=== PATIENT | male | born 1955 ===

== ENCOUNTER 2018-01-31 10:37 | Emergency (ER) | payer MEDICAID ==
--- NOTE | 2018-01-31 12:52 | C.PDOC ---
History Of Present Illness Patient with history of Stroke presents to ED brought by family for right facial swelling and pain for 2 days. As per family patient had similar episode 1 year ago and was admitted. As per family patient is unable to tolerate po intake secondary to pain and denies numbness, recent fall, fever or any other complaints at this time. Time Seen by Provider: 01/31/18 11:41 Chief Complaint (Nursing): Abnormal Skin Integrity History Per: Patient History/Exam Limitations: no limitations Onset/Duration Of Symptoms: Days Current Symptoms Are (Timing): Still Present Past Medical History Reviewed: Historical Data, Nursing Documentation, Vital Signs Vital Signs: Last Vital Signs Temp 98.1 F 01/31/18 16:06 Pulse 58 L 01/31/18 16:06 Resp 18 01/31/18 16:06 BP 135/71 01/31/18 16:06 Pulse Ox 97 01/31/18 16:06 - Medical History PMH: CVA, Diabetes, HTN, Seizures Surgical History: No Surg Hx - [facility] Procedures ENTERAL INFUSION OF CONCENTRATED NUT. SUBSTANCES (12/15/12) OTHER GASTROSTOMY (12/15/12) Family History: States: No Known Family Hx - Social History Hx Tobacco Use: No Hx Alcohol Use: No Hx Substance Use: No - Immunization History Hx Tetanus Toxoid Vaccination: No Hx Influenza Vaccination: No Hx Pneumococcal Vaccination: No Review Of Systems Constitutional: Positive for: Other (facial swelling). Negative for: Fever, Chills Cardiovascular: Negative for: Chest Pain Respiratory: Negative for: Shortness of Breath Gastrointestinal: Negative for: Nausea, Vomiting Skin: Negative for: Rash Neurological: Negative for: Weakness, Numbness Physical Exam - Physical Exam Appears: Non-toxic, No Acute Distress Skin: Warm, Dry, No Rash Head: Normacephalic, Swelling (mild to right side of face at the maxillary jaw) Eye(s): bilateral: PERRL, EOMI Ear(s): Bilateral: Normal Oral Mucosa: Moist Throat: No Erythema, No Exudate Neck: Normal ROM, Supple Lymphatic: No Adenopathy Chest: Symmetrical, No Tenderness Cardiovascular: Rhythm Regular, No Friction Rub, No Murmur Respiratory: Normal Breath Sounds, No Rales, No Rhonchi, No Wheezing Gastrointestinal/Abdominal: Bowel Sounds (active), Soft, No Tenderness Back: Normal Inspection Extremity: Normal ROM, No Tenderness, No Swelling Neurological/Psych: Oriented x3, Normal Speech, Normal Motor, Normal Sensation Gait: Steady ED Course And Treatment - Laboratory Results Result Diagrams: 01/31/18 13:01 01/31/18 13:01 O2 Sat by Pulse Oximetry: 98 (RA) Pulse Ox Interpretation: Normal Medical Decision Making Medical Decision Making: CT scan of the facial bones found no abscess or acute abnormalities. On re-exam, the patient reports improvement of symptoms. Patient was able to eat a full diet. Lungs are CTA, heart is RRR, Abdomen is soft, non-tender and the patient is tolerating PO well. Ambulatory in the ED with steady gait. Follow up with the medical doctor/clinic within 1-2 days without fail. Return if worsened. Disposition - Disposition Referrals: Marianne Deleon DMD [Staff Provider] - Tonny Sandhu MD [Staff Provider] - Disposition: HOME/ ROUTINE Disposition Time: 15:50 Condition: FAIR Additional Instructions: Follow up with the medical doctor/clinic within 1-2 days without fail. Return if worsened. 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 - Scribe Statement The provider has reviewed the documentation as recorded by the Joel Gilbert All medical record entries made by the Joel were at my direction and personally dictated by me. I have reviewed the chart and agree that the record accurately reflects my personal performance of the history, physical exam, medical decision making, and the department course for this patient. I have also personally directed, reviewed, and agree with the discharge instructions and disposition.
[2018-01-31 13:18] LABS: ALB/GLOB RATIO 1.4 (1.0-2.1); ALBUMIN 4.7 g/dL (3.5-5.0); ALT/SGPT 65 U/L (21-72); AST/SGOT 68 U/L (17-59); BLOOD UREA NITROGEN 17 mg/dL (9-20); GFR AFRICAN-AMERICAN > 60; GFR NON-AFRICAN AMERICAN > 60
[2018-01-31 13:21] LABS: BASO % 0.9 % (0.0-2.0); EOS # 0.2 K/uL (0.0-0.7); HEMOGLOBIN 11.2 g/dL (12.0-18.0); LYMPH # 1.5 K/uL (1.0-4.3); LYMPH % 27.8 % (20.0-40.0); MEAN CELL VOLUME 79.4 fL (80.0-94.0); MEAN CORPUSCULAR HEMOGLOBIN 25.4 pg (27.0-31.0); MEAN PLATELET VOLUME 9.5 fL (7.2-11.7); MONO # 0.5 K/uL (0.0-0.8); NEUT # 3.2 K/uL (1.8-7.0); NEUT % 59.3 % (50.0-75.0); RBC 4.4 Mil/uL (4.40-5.90); RED CELL DISTRIBUTION WIDTH 16.1 % (11.5-14.5); WHITE BLOOD COUNT 5.4 K/uL (4.8-10.8)
[2018-01-31] MEDS ORDERED: Iodixanol 320 MG/ML 100 ML BOTTLE IV ONE (13:49)
[2018-01-31 14:48] VITALS: RESP 18
--- NOTE | 2018-01-31 15:46 | CT ---
PROCEDURE: CT OF THE FACE WITH CONTRAST HISTORY: right sided facial swelling, possible abscess COMPARISON: Facial CT without contrast 01/18/2017. TECHNIQUE: Contiguous axial CT images of the facial bones and soft tissue were obtained following administration of IV contrast. Coronal and sagittal reformats were generated. Intravenous contrast Dose: Visipaque 320, 100 cc Radiation dose: Total exam DLP = 792.88 mGy-cm. This CT exam was performed using one or more of the following dose reduction techniques: Automated exposure control, adjustment of the mA and/or kV according to patient size, and/or use of iterative reconstruction technique. FINDINGS: Radiodense markers and placed at the site of the patient's symptoms and suppose it facial swelling and localizes to the level of the right mandibular soft tissues at the level of the junction of the horizontal right mandibular ramus with the right mandibular angle. The visualized superficial portion of the right parotid gland is unremarkable here is well as the masseter muscle superficial segment. No destructive bony lesion is encountered here or throughout the remainder of the facial bones shotty submental and submandibular triangle lymph nodes are identified as well as at the bilateral jugulodigastric distribution in the visualized supra and infrahyoid neck. No abscess appreciable throughout the examination. NASAL BONES: Unremarkable. ORBITS: Unremarkable. PARANASAL SINUSES/ MASTOIDS: Clear. MAXILLA: Unremarkable. MANDIBLE/ TEMPOROMANDIBULAR JOINTS: Unremarkable. SKULL BASE: Unremarkable. TEMPORAL BONES: Middle ears and mastoid grossly unremarkable. OTHER FINDINGS: None. IMPRESSION: Unremarkable contrast enhanced CT of the maxillofacial bones.
[2018-01-31 16:08] VITALS: BP 135/71; PULSE 58; TEMP 98.1
[2018-01-31 18:28] VITALS: O2SAT 98
== END 2018-01-31 16:06 | disposition home or self-care (01) ==
LOC: C.ER 10:37
DX: R68.84 Jaw pain (principal); E11.9 Type 2 diabetes mellitus without complications; I10 Essential (primary) hypertension
CPT/HCPCS: 70488; 80053; 85025; 96374; 99284; J1885; Q9967

== ENCOUNTER 2018-11-17 10:33 | Emergency (ER) | payer MEDICAID ==
[2018-11-17 10:54] VITALS: RESP 18; BMI 22.1
--- NOTE | 2018-11-17 11:29 | C.PDOC ---
History Of Present Illness 62-year-old male, whose PMHx includes trigeminal neuralgia, presents to the ED with daughter for evaluation of worsening right-sided facial pain. Patient has been compliant with his prescription of 600mg Gabapentin QID. He states that over the past week, his pain has worsened, particularly when he is eating or brushing his teeth. Patient denies fever, chills, or recent trauma/injuries. History obtained via daughter due to language barrier. Time Seen by Provider: 11/17/18 10:53 Chief Complaint (Nursing): Abnormal Skin Integrity History Per: Patient, Family History/Exam Limitations: language barrier Onset/Duration Of Symptoms: Other (one week ) Current Symptoms Are (Timing): Worse Location Of Injury: Right: Face Quality Of Symptoms: Painful Additional History Per: Family Past Medical History Reviewed: Historical Data, Nursing Documentation, Vital Signs Vital Signs: Last Vital Signs Temp 98.6 F 11/17/18 10:41 Pulse 78 11/17/18 10:41 Resp 18 11/17/18 10:41 BP 160/74 H 11/17/18 10:41 Pulse Ox 100 11/17/18 10:41 - Medical History PMH: CVA, Diabetes, HTN, Seizures Surgical History: No Surg Hx - [facility] Procedures ENTERAL INFUSION OF CONCENTRATED NUT. SUBSTANCES (12/15/12) OTHER GASTROSTOMY (12/15/12) Family History: States: No Known Family Hx - Social History Hx Tobacco Use: No Hx Alcohol Use: No Hx Substance Use: No - Immunization History Hx Tetanus Toxoid Vaccination: No Hx Influenza Vaccination: No Hx Pneumococcal Vaccination: No Review Of Systems Constitutional: Negative for: Fever, Chills ENT: Positive for: Other (right-sided facial pain ) Cardiovascular: Negative for: Chest Pain Respiratory: Negative for: Shortness of Breath Skin: Negative for: Rash Neurological: Negative for: Weakness, Numbness, Incoordination, Change in Speech, Confusion, Seizures, Altered Mental Status, Headache, Dizziness Physical Exam - Physical Exam Appears: Well, Non-toxic, Other (uncomfortable appearing ) Skin: Normal Color, Warm, Dry, No Rash Head: Atraumatic, Normacephalic, Tenderness ((+) TTP along the right zygomatic arch), No Swelling (facial ), No Other (facial erythema ) Eye(s): bilateral: Normal Inspection, PERRL, EOMI Ear(s): Bilateral: Normal Nose: Normal, No Discharge Oral Mucosa: Moist Teeth: No Normal Dentition (poor ), Caries Gingiva: Normal Appearing, No Erythema, No Swelling Neck: Normal ROM, No Midline Cervical Tenderness, No Paracervical Tenderness, No Step Off Deformity, Supple Cardiovascular: Rhythm Regular Respiratory: Normal Breath Sounds, No Rales, No Rhonchi, No Wheezing Extremity: Normal ROM Neurological/Psych: Oriented x3, Normal Speech, Normal Cognition, Normal Cranial Nerves, No Cerebellar Signs, Normal Motor, Normal Sensation ED Course And Treatment O2 Sat by Pulse Oximetry: 100 (on RA) Pulse Ox Interpretation: Normal Progress Note: Patient given IM toradol and PO Valium. Reevaluation Time: 11:50 Reassessment Condition: Improved (On reassessment, patient is resting comfortably and pain has improved. Rxs for Naprosyn and Valium given. Patient instructed to follow up with his neurologist Dr. Harper within 1 week. He understands he should return to ED if symptoms worsen.) Disposition Counseled Patient/Family Regarding: Diagnosis, Need For Followup, Rx Given - Disposition Referrals: Toney Harper MD [Staff Provider] - Wesly Bailey MD [Staff Provider] - Disposition: HOME/ ROUTINE Disposition Time: 11:50 Condition: STABLE Additional Instructions: FOLLOW UP WITH YOUR DOCTOR IN 1-2 DAYS, AND WITH YOUR NEUROLOGIST WITHIN 1 WEEK USE MEDICATIONS DIRECTED RETURN TO ER IF SYMPTOMS WORSEN Prescriptions: Diazepam [Valium] 2 mg PO BID PRN #14 tablet PRN Reason: musle spasm Naproxen 375 mg PO BID PRN #20 tablet PRN Reason: pain Instructions: Trigeminal Neuralgia Forms: [employer] (Indonesian) Print Language: SALVADOREAN - Clinical Impression Clinical Impression: Trigeminal neuralgia of right side of face - Scribe Statement The provider has reviewed the documentation as recorded by the Scribe (Carrie Finley) Provider Attestation: All medical record entries made by the Scribe were at my direction and personally dictated by me. I have reviewed the chart and agree that the record accurately reflects my personal performance of the history, physical exam, medical decision making, and the department course for this patient. I have also personally directed, reviewed, and agree with the discharge instructions and disposition.
[2018-11-17 11:44] VITALS: BP 152/77; PULSE 65; TEMP 97.4
[2018-11-17 14:49] VITALS: O2SAT 100
== END 2018-11-17 11:58 | disposition home or self-care (01) ==
LOC: C.ER 10:33
DX: G50.0 Trigeminal neuralgia (principal)
CPT/HCPCS: 82948; 96372; 99283; J1885

== ENCOUNTER 2018-12-28 12:00 | Emergency (ER) | payer MEDICAID ==
[2018-12-28 12:00] VITALS: BMI 22.1
[2018-12-28 12:29] VITALS: BP 180/83; PULSE 70; RESP 16; TEMP 97.3; O2SAT 98
--- NOTE | 2018-12-28 13:32 | C.PDOC ---
History Of Present Illness 62 y/o male presents to the ER complaining of recurrent bleeding hemorrhoids which occurred in the morning.Patient states that he had onset after having bm and he had some associated rectal pain. Patient reports that he has hemorrhoids which has been present for the past 1 month. He notes that he was evaluated by his PMD and he is pending colonoscopy. He states that he has not been evaluated by a surgeon as of now. He is currently on Plavix and Lactulose. Currently,patient denies having rectal pain, fever,chills, nausea, and vomiting. Time Seen by Provider: 12/28/18 13:16 Chief Complaint (Nursing): GI Problem History Per: Patient History/Exam Limitations: no limitations Onset/Duration Of Symptoms: Days Current Symptoms Are (Timing): Still Present Severity: Moderate Past Medical History Reviewed: Historical Data, Nursing Documentation, Vital Signs Vital Signs: Last Vital Signs Temp 97.3 F L 12/28/18 12:28 Pulse 70 12/28/18 12:28 Resp 16 12/28/18 12:28 BP 180/83 H 12/28/18 12:28 Pulse Ox 98 12/28/18 12:28 Primary Care Provider: Wesly Bailey - Medical History PMH: CVA, Diabetes, HTN, Seizures Other Surgeries: Hx of surgeries - [facility] Procedures ENTERAL INFUSION OF CONCENTRATED NUT. SUBSTANCES (12/15/12) OTHER GASTROSTOMY (12/15/12) Family History: States: No Known Family Hx, Unknown Family Hx - Social History Hx Tobacco Use: No Hx Alcohol Use: No Hx Substance Use: No - Immunization History Hx Tetanus Toxoid Vaccination: No Hx Influenza Vaccination: No Hx Pneumococcal Vaccination: No Review Of Systems Except As Marked, All Systems Reviewed And Found Negative. Constitutional: Negative for: Fever, Chills Gastrointestinal: Positive for: Other (hemorrhoids). Negative for: Nausea, Vomiting, Abdominal Pain Physical Exam - Physical Exam Appears: Non-toxic, No Acute Distress Skin: Normal Color, Warm, Dry Head: Atraumatic, Normacephalic Eye(s): bilateral: Normal Inspection Chest: Symmetrical Cardiovascular: Rhythm Regular Respiratory: Normal Breath Sounds, No Rales, No Rhonchi, No Wheezing Gastrointestinal/Abdominal: Soft, No Tenderness, No Guarding, No Rebound Rectal: Hemorrhoids (external hemorrhoid, no thrombosis, no bleeding) Neurological/Psych: Oriented x3, Normal Speech ED Course And Treatment O2 Sat by Pulse Oximetry: 98 (RA) Pulse Ox Interpretation: Normal Medical Decision Making Medical Decision Making: Patient has been instructed to continue taking current medications as prescribed by PMD. Patient has been discharged with surgeon referral and instructed to follow up with PMD and surgeon. Disposition Counseled Patient/Family Regarding: Diagnosis, Need For Followup - Disposition Referrals: Alin Callahan MD [Staff Provider] - YOUR,PMD [Other] Disposition: HOME/ ROUTINE Disposition Time: 13:30 Condition: GOOD Instructions: Hemorrhoids (DC) Forms: [employer] (Yoruba) - Clinical Impression Clinical Impression: Hemorrhoids - Scribe Statement The provider has reviewed the documentation as recorded by the Joel Vang Provider Attestation: All medical record entries made by the Joel were at my direction and personally dictated by me. I have reviewed the chart and agree that the record accurately reflects my personal performance of the history, physical exam, medical decision making, and the department course for this patient. I have also personally directed, reviewed, and agree with the discharge instructions and disposition.
== END 2018-12-28 13:57 | disposition home or self-care (01) ==
LOC: C.ER 12:00
DX: K64.4 Residual hemorrhoidal skin tags (principal)